=== PATIENT | female | born 1945 | race Caucasian/White ===

== ENCOUNTER → 2016-05-13 | Outpatient (CLI) | payer MEDICARE ==
[~2016-05-13] MED LIST: ACCUPRIL10 MG PO; ALBUTEROL17 GM INH; AMOXICILLIN500 M1 PO; ANEXSIA 5/325 M1 TA1 PO; ANEXSIA 7.5/3251 TA1 PO; BETAPACE80 MG PO; BUSPIRONE HCL10 MG PO; CARDIZEM CD120 M1 PO; CARDIZEM LA360 MG PO; CARDIZEM30 MG PO; CELEBREX PO; CELEBREX100 MG PO; CLARITHROMYCIN500 M2 PO; CORDARONE200 M1 PO; COUMADIN2.5 MG PO; COUMADIN5 MG PO; CRESTOR5 MG PO; DARVOCET-N 1001 TA1 PO; DEXILANT60 MG PO; GLUCOPHAGE500 M1 PO; GLUCOTROL10 MG PO; HCTZ PO; HYDROCHLOROTHIA25 MG PO; HYDROCODON-ACE1 EAC5 PO; HYDROCODON-ACE118 ML PO; K-TAB ER20 MEQ PO; LASIX20 MG PO; LEVOTHYROXINE150 MC1 PO; LEVOXYL125 MC1 PO; LISINOPRIL10 MG PO; LISINOPRIL5 MG PO; METOPROLOL SUCC25 MG PO; MICRO-K10 ME2 PO; MULTAQ400 MG PO; NORVASC PO; OXYGEN; POTASSIUM99 M1 PO; PRINIVIL40 MG PO; SOTALOL AF80 MG PO; SPIRIVA18 MCG INH; ZESTRIL2.5 M1 PO; ZOLOFT100 MG PO
[2016-05-13 12:29] LABS: INR 2.9; PROTHROMBIN TIME (PATIENT) 32.7 SECONDS (9.5-12.4)
== END | disposition home or self-care (01) ==
LOC: SLAB 11:14
PROVIDERS: Internal Medicine Cardiovascular Disease
DX: Z51.81 Encounter for therapeutic drug level monitoring (principal); I48.91 Unspecified atrial fibrillation; Z79.01 Long term (current) use of anticoagulants
CPT/HCPCS: 36415; 85610

== ENCOUNTER → 2016-06-28 | Outpatient (CLI) | payer MEDICARE ==
[2016-06-28 16:30] LABS: INR 3.3; PROTHROMBIN TIME (PATIENT) 38.1 SECONDS (9.5-12.4)
== END | disposition home or self-care (01) ==
LOC: SLAB 13:40
PROVIDERS: Internal Medicine Cardiovascular Disease
DX: I48.91 Unspecified atrial fibrillation (principal); Z79.01 Long term (current) use of anticoagulants
CPT/HCPCS: 36415; 85610

== ENCOUNTER → 2016-07-25 | Outpatient (CLI) | payer MEDICARE ==
--- NOTE | ~2016-07-25 | CT55 ---
[facility] A Service of [facility] & [facility] RADIOLOGY TEXT RESULTS PATIENT: PRITESH BRIDGES LOCATION: [facility] : 47 UNIT #: [id number] AGE: [address]: Landen Schmitt MD SEX: F ORDER DR: [id number] [facility] [address] [place], [place] [address] [id number] O MR#: [id number] Acc #: [id number] NAME: PRITESH BRIDGES. : 1945 SEX: F STUDY DATE/TIME: 07/25/2016 14:02 UNIT: [facility] ROOM: STUDY DESCRIPTION: CT Chest W Con Attending Physician: Landen Schmitt M.D. Ordering Physician: Landen Schmitt M.D. Primary Care Physician: Layla Kincaid M.D. MEDICAL IMAGING REPORT This report is preliminary unless electronic signature is present EXAM CT chest with contrast 07/25/2016 HISTORY Physician's order states adenocarcinoma of the right lung. Follow up lung cancer. Patient complains of cough today. History of right upper lobe lung resection. Diabetes. Atrial fibrillation. Hypertension. COMPARISON CT chest 04/11/2016, 12/02/2015, 08/05/2015, 05/08/2015, 02/04/2015. TECHNIQUE This CT exam was performed with one or more of the following radiation dose reduction techniques: automatic exposure control, adjustment of mA and/or kV according to patient size, and iterative reconstruction. FINDINGS Volume loss in the right hemithorax is consistent with history of right upper lobe lung resection. Dense right mid- to upper lung zone paramediastinal pleural parenchymal thickening with traction bronchiolectasis is present, thought to represent sequelae of radiation therapy. It is unchanged from prior. Chronic small right pleural effusion is present posteriorly, extending from the apex to the base. It appears unchanged. 6 mm noncalcified nodule in the posterior left upper lobe (series 6, image 25) is stable since 04/11/2016 but appears more dense or more prominent than on the previous CT chest from 11/17/2014. 5 mm noncalcified left lower lobe pulmonary nodule (series 6, image 48) appears stable since 11/17/2014. No definite new pulmonary nodules are identified. No new or pathologically enlarged lymph nodes are appreciated on today's examination. A precarinal node measuring about 1.1 cm short axis is stable since 11/17/2014. Left chest wall cassia catheter extends to the SVC. [facility] A Service of [facility] RADIOLOGY TEXT RESULTS PATIENT: PRITESH BRIDGES LOCATION: [facility] : 47 UNIT #: [id number] AGE: [address]: Landen Schmitt MD SEX: F ORDER DR: Complex cystic lesion in the left hepatic lobe measures about 9.4 cm and is thought to represent a benign finding. Probable tiny cyst in the left mid kidney measures 9 mm, unchanged. No acute or suspicious osseous lesions are identified. Probable sebaceous cyst in the left upper back. IMPRESSION 1. Approximately 5 mm left lower lobe pulmonary nodule appears stable since 11/17/2014. Approximately 6 mm noncalcified nodule posterior left upper lobe is stable since 04/11/2016 but appears slightly more dense or prominent when compared to a more remote CT chest from 11/17/2014. Continued 6-month CT chest surveillance imaging with respect to this nodule would be recommended. 2. 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 3. No evidence of pathologic adenopathy in the chest on today's examination, or evidence of progressive disease. 4. Mildly complex but benign-appearing cystic lesion in the left hepatic lobe unchanged. 5. Cholecystectomy. 6. Left renal cyst. Dictated by... Nayely Saunders M.D. THIS IS AN ELECTRONICALLY VERIFIED REPORT Nayely Saunders M.D. at 07/28/2016 8:30 AM YSABEL/edgardo TD: 07/25/2016 20:20 JOB #: [id number] MEDICAL IMAGING REPORT Page 1 of 1 COPY
[2016-07-25 15:51] LABS: POC - CREATININE 0.64 mg/dL (0.44-1.03); POC - GFR >60.0 mL/min (>60)
== END | disposition home or self-care (01) ==
LOC: CCAT 12:57
PROVIDERS: Internal Medicine Medical Oncology
DX: C34.91 Malignant neoplasm of unspecified part of right bronchus or lung (principal); R91.1 Solitary pulmonary nodule; J84.10 Pulmonary fibrosis, unspecified; J90 Pleural effusion, not elsewhere classified; N28.1 Cyst of kidney, acquired; K76.89 Other specified diseases of liver; Z90.2 Acquired absence of lung [part of]; Z90.49 Acquired absence of other specified parts of digestive tract
CPT/HCPCS: 71260; 82565; Q9967

== ENCOUNTER → 2016-09-01 | Outpatient (CLI) | payer MEDICARE ==
[2016-09-01 11:50] LABS: INR 3.3; PROTHROMBIN TIME (PATIENT) 37.6 SECONDS (9.5-12.4)
== END | disposition home or self-care (01) ==
LOC: SLAB 10:26
PROVIDERS: Internal Medicine Cardiovascular Disease
DX: Z51.81 Encounter for therapeutic drug level monitoring (principal); I48.91 Unspecified atrial fibrillation; Z79.01 Long term (current) use of anticoagulants
CPT/HCPCS: 36415; 85610

== ENCOUNTER → 2016-09-12 | Outpatient (CLI) | payer MEDICARE ==
[2016-09-12 13:27] LABS: INR 3.4; PROTHROMBIN TIME (PATIENT) 38.9 SECONDS (9.5-12.4)
== END | disposition home or self-care (01) ==
LOC: SLAB 11:40
PROVIDERS: Internal Medicine Cardiovascular Disease
DX: Z51.81 Encounter for therapeutic drug level monitoring (principal); I48.91 Unspecified atrial fibrillation; Z79.899 Other long term (current) drug therapy
CPT/HCPCS: 36415; 85610

== ENCOUNTER → 2016-10-17 | Outpatient (CLI) | payer MEDICARE ==
[2016-10-17 08:58] LABS: PROTHROMBIN TIME (PATIENT) 22.6 SECONDS (9.5-12.4)
== END | disposition home or self-care (01) ==
LOC: SLAB 08:18
PROVIDERS: Internal Medicine Cardiovascular Disease
DX: Z51.81 Encounter for therapeutic drug level monitoring (principal); I48.91 Unspecified atrial fibrillation; Z79.01 Long term (current) use of anticoagulants
CPT/HCPCS: 36415; 85610

== ENCOUNTER → 2016-11-23 | Outpatient (CLI) | payer MEDICARE ==
--- NOTE | ~2016-11-23 | MY26 ---
[facility] A Service of [facility] & [facility] & [facility] RADIOLOGY TEXT RESULTS PATIENT: PRITESH BRIDGES LOCATION: [facility] : 47 UNIT #: [id number] AGE: [address]: Layla Kincaid MD SEX: F ORDER DR: [id number] [facility] [address] [place], [place] [address] [id number] O MR#: [id number] Acc #: [id number] NAME: PRITESH BRIDGES. : 1945 SEX: F STUDY DATE/TIME: 11/23/2016 8:07 UNIT: [facility] ROOM: STUDY DESCRIPTION: [facility] DIAGNOSTIC W/ CAD BILAT Attending Physician: Layla Kincaid M.D. Referring Physician: Layla Kincaid M.D. Ordering Physician: Layla Kincaid M.D. Primary Care Physician: Layla Kincaid M.D. MEDICAL IMAGING REPORT This report is preliminary unless electronic signature is present EXAM Bilateral digital diagnostic mammogram with CAD. Date: 11/23/2016. HISTORY 71-year-old female with complaints of fullness and palpable abnormality in the right axillary region for 10 days. States palpable abnormality not as evident today. Additional history of lung cancer. History of benign left breast biopsies 1968 and 1979. COMPARISON Bilateral digital screening mammogram 12/02/2015. Right breast diagnostic mammogram 05/30/2014. Bilateral screening mammogram 05/13/2014. FINDINGS CC and MLO views were obtained of each breast utilizing digital technique and reviewed with an FDA-approved CAD device. Additional true ML view and axillary tail view were obtained of the right breast. Linear markers were placed over each breast denoting surgical scars. Very minimal postsurgical architectural distortion left breast has a similar appearance to prior examinations. No nonsurgical architectural distortion is seen. Scattered fibroglandular densities are present bilaterally. The parenchymal pattern appears stable, with mild fibronodular pattern. Benign appearing lymph node is seen overlying the right axillary region, superimposed upon the pectoral muscle. No suspicious nodule is identified. Benign calcification is present in each breast. There are no suspicious clustered microcalcifications. STS. [facility] A Service of [facility] & [facility] & [facility] RADIOLOGY TEXT RESULTS PATIENT: PRITESH BRIDGES LOCATION: [facility] : 47 UNIT #: [id number] AGE: [address]: Layla Kincaid MD SEX: F ORDER DR: Targeted diagnostic right breast ultrasound was performed with particular attention to the axillary region. No suspicious nodule or mass is identified. Incidental note is made of a benign appearing right axillary lymph node measuring only 7 mm maximally, within normal fatty hilum and thin cortex. IMPRESSION 1. BIRADS 2. Benign findings within each breast. There is no mammographic or sonographic abnormality at the site of the right axilla or patient's palpable complaint. Normal benign-appearing nonpathologically enlarged lymph node is incidentally noted in the right axillary tail. 2. Routine bilateral screening mammogram recommended in year. 3. Findings and recommendations were discussed with the patient today in the radiology department. Patients over the age of 40 are entered into a reminder system with target due date for the next mammogram. A result letter will be sent to the patient. BIRADS: 2 Benign findings. Dictated by... Nayely Saunders M.D. THIS IS AN ELECTRONICALLY VERIFIED REPORT Nayely Saunders M.D. at 11/24/2016 9:39 AM Chelsie TD: 11/23/2016 11:41 JOB #: [id number] MEDICAL IMAGING REPORT Page 1 of 1 COPY
--- NOTE | ~2016-11-23 | US24 ---
[facility] A Service of [facility] RADIOLOGY TEXT RESULTS PATIENT: PRITESH BRIDGES LOCATION: [facility] : 47 UNIT #: [id number] AGE: [address]: Layla Kincaid MD SEX: F ORDER DR: [id number] [facility] [address] [place], [place] [address] [id number] O MR#: [id number] Acc #: [id number] NAME: PRITESH BRIDGES. : 1945 SEX: F STUDY DATE/TIME: 11/23/2016 8:46 UNIT: [facility] ROOM: STUDY DESCRIPTION: US Breast Unilateral Attending Physician: Layla Kincaid M.D. Referring Physician: Layla Kincaid M.D. Ordering Physician: Layla Kincaid M.D. Primary Care Physician: Layla Kincaid M.D. MEDICAL IMAGING REPORT This report is preliminary unless electronic signature is present EXAM Diagnostic right breast ultrasound DATE 11/23/2016 HISTORY Fullness and palpable abnormality of the right breast for approximately 10 days. The palpable abnormality is less evident today. Additional history of lung cancer with a history of chemotherapy and radiation therapy. COMPARISON Bilateral diagnostic mammogram 11/23/2016. Bilateral screening mammogram 12/02/2015. Right breast diagnostic mammogram 05/30/2014. Bilateral screening mammogram 05/13/2014 and 05/10/2013. FINDINGS Target sonographic imaging was obtained of the right breast with particular attention to the right axial region at the site of patient's palpable complaint. Benign-appearing nonpathologic 7 mm lymph node is seen within normal prominent fatty hilum and thin cortex. No suspicious cystic or solid nodule, architectural distortion, or microcalcification is seen. IMPRESSION Right breast BIRADS category 2. Benign findings. Routine bilateral screening mammogram recommended in 1 year. Findings and recommendations were discussed with the patient today in the radiology department. BIRADS: 2 Benign findings, right breast [facility] A Service [facility] RADIOLOGY TEXT RESULTS PATIENT: PRITESH BRIDGES LOCATION: [facility] : 47 UNIT #: [id number] AGE: [address]: Layla Kincaid MD SEX: F ORDER DR: Dictated by... Nayely Saunders M.D. THIS IS AN ELECTRONICALLY VERIFIED REPORT Nayely Saunders M.D. at 11/24/2016 9:39 AM YSABEL/breanna TD: 11/23/2016 12:08 JOB #: [id number] MEDICAL IMAGING REPORT Page 1 of 1 COPY
== END | disposition home or self-care (01) ==
LOC: CMAM 07:50
DX: N64.4 Mastodynia (principal); R22.2 Localized swelling, mass and lump, trunk; Z91.89 Other specified personal risk factors, not elsewhere classified
CPT/HCPCS: 76641; G0204